=== PATIENT | male | born 1960 | race African-American/Black ===

== ENCOUNTER 2017-05-11 13:49 | Emergency (ER) | payer OTHER ==
--- NOTE | 2017-05-11 14:46 | RAD ---
RIGHT HAND THIRD DIGIT THREE VIEWS: History: Pain. Comparison: None. FINDINGS: No fracture. No cortical irregularity. No periosteal reaction. Joint space is preserved. IMPRESSION: Unremarkable three views right hand. POS: [facility]
== END 2017-05-11 15:15 | disposition home or self-care (01) ==
LOC: ERS 13:49
DX: S60.031A Contusion of right middle finger without damage to nail, initial encounter (principal); F17.210 Nicotine dependence, cigarettes, uncomplicated; W22.8XXA Striking against or struck by other objects, initial encounter; Y92.69 Other specified industrial and construction area as the place of occurrence of the external cause

== ENCOUNTER 2018-11-30 14:14 | Emergency (ER) | payer OTHER, SELFPAY ==
[2018-11-30] MEDS ORDERED: Aspirin Chewable 81 MG TAB ONE (14:31)
[2018-11-30] MEDS ORDERED: Ondansetron PF 4 MG/2 ML Vial ONE (14:31)
[2018-11-30] MEDS ORDERED: Morphine 4 MG/ML VIAL ONE ×2 (14:41→16:04)
[2018-11-30 14:52] LABS: #Eosinphils 0.1 thou/uL (0.0-0.7); #Lymphocytes 2.2 thou/uL (1.20-3.40); #Monocytes 0.8 thou/uL (0.11-0.59); #Neutrophils 7.2 thou/uL (1.40-6.50); %Basophils 0.3 % (0.0-1.0); %Eosinophils 0.8 % (0.0-10.0); %Lymphocytes 21.6 % (21.0-51.0); %Monocytes 7.3 % (0.0-10.0); %Neutrophils 69.9 % (42.0-75.0); Hemoglobin 16.5 g/dL (14.0-18.0); Mean Corpuscular HGB CONC 34.6 g/dL (32.0-36.0); Mean Corpuscular Hemoglobin 32.8 pg (27.0-31.0); Mean Corpuscular Volume 94.9 fL (78.0-98.0); Mean Platelet Volume 7.7 fL (7.4-10.4); Platelet Count 240 thou/uL (130-400); RBC Distribution Width 12.8 % (11.5-14.5); Red Blood Cell (RBC) Count 5.02 mill/uL (4.70-6.10); White Blood Cell (WBC) Count 10.3 thou/uL (4.8-10.8)
[2018-11-30 15:15] LABS: ALT (SGPT) 19 U/L (8-55); AST (SGOT) 29 U/L (5-34); Albumin 4.3 g/dL (3.5-5.0); Alkaline Phosphatase 73 U/L (40-150); Anion Gap 20 mmol/L (10-20); BUN (Urea Nitrogen) 10 mg/dL (8.4-25.7); Bilirubin, Total 0.5 mg/dL (0.2-1.2); Calc. Creatinine Clearance 0 mL/min (70-130); Calcium 9.7 mg/dL (7.8-10.44); Carbon Dioxide 21 mmol/L (22-29); Chloride 104 mmol/L (98-107); Estimated GFR-MDRD 82; Globulin 3.2 g/dL (2.4-3.5); Glucose 72 mg/dL (70-105); Lipase 22 U/L (8-78); Potassium 3.8 mmol/L (3.5-5.1); Protein, Total 7.5 g/dL (6.0-8.3); Sodium 141 mmol/L (136-145)
--- NOTE | 2018-11-30 15:17 | RAD ---
CHEST 1 VIEW: HISTORY: Sharp midsternal chest pain. COMPARISON: 05/30/2009. FINDINGS: Heart size is within normal limits. The lungs are clear. IMPRESSION: No significant acute intrathoracic disease. POS: [facility]
[2018-11-30] MEDS ORDERED: ISOVUE-370 76%-LOCM 1 ML ONE (15:24)
[2018-11-30] MEDS ORDERED: Lidocaine Viscous Sol 2% 15 ml UD Cup ONE (15:36)
[2018-11-30] MEDS ORDERED: Mag-Al 1200 mg/1200 mg/30 ML UDCUP ONE (15:36)
--- NOTE | 2018-11-30 16:05 | CT ---
CT arteriogram chest with IV contrast and 3-D imaging CT arteriogram abdomen with IV contrast and 3-D imaging HISTORY: Chest and back pain. Abdomen pain. FINDINGS: There is good contrast opacification of the pulmonary arteries and aorta with normal branch ing of the great vessels at the aortic arch. No filling defects. Mild calcification within the arterial structures. Visceral arteries are patent. No significant stenosis. Hyperdense stone within the gallbladder lumen. No associated inflammation. Mild degenerative changes lumbar spine. Small hiatal hernia. Bone island right iliac bone. IMPRESSION: Atherosclerosis. No evidence of dissection or other acute vascular abnormality. Cholelithiasis Small hiatal hernia.
[2018-11-30 16:43] LABS: Amphetamine Not Detected (NotDetected); Barbiturates Screen Not Detected (NotDetected); Benzodiazepine Screen Not Detected (NotDetected); Cocaine Metabolite Screen Detected (NotDetected); Medtox Control Line Valid? VALID (VALID); Medtox Reader # READER 1; Methadone Not Detected (NotDetected); Methamphetamine Not Detected (NotDetected); Opiate Screen Detected (NotDetected); Oxycodone Screen Not Detected (NotDetected); Phencyclidine (PCP) Not Detected (NotDetected); THC/Cannabinoid Screen Detected (NotDetected); Tricyclic Screen Not Detected (NotDetected)
--- NOTE | 2018-11-30 17:11 | ULT ---
ULTRASOUND ABDOMEN LIMITED: (RIGHT UPPER QUADRANT) DATE: 11/30/2018 HISTORY: 58-year-old male with right upper quadrant abdominal pain. FINDINGS: Gallbladder:Normal wall thickness. No pericholecystic fluid. There is a 15 mm mobile gallstone. Common duct: 2 mm. Liver:Echogenicity diffusely slightly homogeneously increased. This could be normal or could represen t fatty liver. Pancreas:Mostly obscured by shadowing from bowel gas. Right kidney:No hydronephrosis. IMPRESSION: Cholelithiasis without sonographic evidence of acute cholecystitis.
== END 2018-11-30 18:21 | disposition home or self-care (01) ==
LOC: ERS 14:14
DX: K80.20 Calculus of gallbladder without cholecystitis without obstruction (principal); R07.2 Precordial pain; Z71.6 Tobacco abuse counseling; F17.210 Nicotine dependence, cigarettes, uncomplicated
CPT/HCPCS: 36415; 71045; 71275; 76705; 80053; 80306; 83605; 83690; 84484; 85025; 93005; 96361; 96374; 96375; 96376; 99406; J2270; J2405; Q9966

== ENCOUNTER 2018-12-18 14:58 | Inpatient (IN) | payer SELFPAY ==
[~2018-12-18 14:58] MED LIST: Iopamidol 370 76% 100 ML VIAL ONE
[2018-12-18] MEDS ORDERED: Fentanyl 100 MCG/2 ML VIAL ONE ×2 (15:28→19:31)
[2018-12-18] MEDS ORDERED: Midazolam HCl 2 mg/2 ml Vial ONE (15:28)
[2018-12-18] MEDS ORDERED: Fentanyl 250 MCG/5 ML VIAL ONE (15:49)
[2018-12-18] MEDS ORDERED: Calcium Chloride 1 GM/10 ML Abboject SYRINGE ONE ×2 (15:51→16:48)
[2018-12-18] MEDS ORDERED: Thrombin 5000 UNITS/5 ML VIAL ONE ×2 (15:51→16:48)
[2018-12-18] MEDS ORDERED: Heparin 5,000 UNITS/ML VIAL ONE ×2 (15:51→16:48)
[2018-12-18] MEDS ORDERED: Bupivacaine HCl 0.5%/Epinephrine 1:200,000/PF 30 ml Vial ONE (15:51)
[2018-12-18] MEDS ORDERED: Dexamethasone 4 mg/ml Vial ONE (15:51)
[2018-12-18] MEDS ORDERED: Sodium Bicarb 50 MEQ/50 ML VIAL ONE ×2 (15:52→16:48)
[2018-12-18] MEDS ORDERED: Midazolam HCl 5 mg/5 ml Vial ONE (15:58)
[2018-12-18] MEDS ORDERED: Phenylephrine HCL 10 MG/ML VIAL ONE (15:58)
[2018-12-18] MEDS ORDERED: Heparin 10,000 UNITS/1 ML VIAL ONE (16:03)
[2018-12-18] MEDS ORDERED: Lidocaine 1% (PF) 30 ML VIAL ONE (16:04)
--- NOTE | 2018-12-18 16:16 | CON ---
DATE OF CONSULTATION: CHIEF COMPLAINT: Acute UT. HISTORY OF PRESENT ILLNESS: Mr. Nunes is a 58-year-old gentleman with previous history of tobacco abuse, who recently presented to [facility] with acute chest pain. It began at 9 a.m. He presented with the above. ST-segment changes were present. PAST MEDICAL HISTORY: None. SOCIAL HISTORY: Positive alcohol. Positive tobacco use. He did previously use cocaine, he states he no longer uses cocaine. ALLERGIES: NONE. MEDICATIONS: None. REVIEW OF SYSTEMS: A 10-point review of systems is reviewed as above, otherwise negative. PHYSICAL EXAMINATION: VITAL SIGNS: Blood pressure 153/79, pulse 80, and respirations 20. GENERAL: Patient is a pleasant gentleman, who is in no acute distress. The patient appears their stated age. NEUROLOGIC: The patient is alert and oriented x3 with no focal neurologic deficits. HEENT: Sclerae without icterus. Mouth has moist mucous membranes with normal pallor. NECK: No JVD. Carotid upstroke brisk. No bruits bilaterally. LUNGS: Clear to auscultation with unlabored respirations. BACK: No scoliosis or kyphosis. CARDIAC: Regular rate and rhythm with normal S1 and S2. No S3 or S4 noted. No significant rubs, murmurs, thrills, or gallops noted throughout the precordium. PMI is not displaced. There is no parasternal heave. ABDOMEN: Soft, nontender, nondistended. No peritoneal signs present. No hepatosplenomegaly. No abnormal striae. EXTREMITIES: 2+ femoral and 2+ dorsalis pedis pulses. No cyanosis, clubbing, or edema. SKIN: No gross abnormalities. PERTINENT LABORATORY DATA: Currently pending. EKG shows diffuse ST-segment changes suggesting acute UT, but no reciprocal changes present. IMPRESSION: Acute myocardial infarction. RECOMMENDATIONS: At this point, we will recommend urgent coronary angiography and possible PCI. I discussed procedure in full detail Mr. Nunes. Risks included, but not limited to the following: , stroke, UT, need for emergency surgery, loss of limb, bleeding, and infection, as well as a reaction to the dye causing kidney failure and needing long-term dialysis. I also discussed the risks of PCI to include all of the above including coronary dissection and perforation in addition to acute stent thrombosis and restenosis. All questions about the procedure were answered. Given the above, the patient agreed to proceed with coronary angiography and possible PCI. All questions were answered. Given the above, the patient agreed to proceed with above procedure. Job ID: [id number]
--- NOTE | 2018-12-18 16:38 | CON ---
DATE OF CONSULTATION: HISTORY OF PRESENT ILLNESS: This is a 58-year-old gentleman, who was seen in the emergency room about 2 weeks ago with some chest and abdominal pain. A CTA at that time showed no dissection and his troponin was normal. He had a positive drug screen for opiates, cannabis, and cocaine. He presented to the [place] [facility] today with chest pain and did have a troponin bump with some EKG changes of diffuse ST elevation and was transferred here and cardiac catheterization shows what appears to be thrombus in the proximal LAD, possibly extending back into the left main and Dr. Evans was concerned about possible dissection. Right coronary artery has less than 40% stenosis in its midportion and less than 40% stenosis after the takeoff of the PDA. Left ventricular systolic function is normal. PAST MEDICAL HISTORY: Negative for any medical illnesses. MEDICATIONS: None. ALLERGIES: NONE. SOCIAL HISTORY: The patient admits to drinking a 40-ounce beer or equivalent on a daily basis. He smokes a half pack of cigarettes a day and drug usage, none this month. He, I believe, lives with his mother. PHYSICAL EXAMINATION: GENERAL: He is alert and cooperative gentleman, appearing his stated age. NECK: No carotid bruits. LUNGS: Clear to auscultation. CARDIAC: Regular rate and rhythm. No murmurs. ABDOMEN: Firm and nontender. EXTREMITIES: He has no peripheral edema with palpable pedal pulses and radial pulses bilaterally. He has a sheath in the right femoral artery. PLAN: At this time is coronary artery bypass grafting to the LAD and circumflex system. Informed consent has been obtained. Job ID: [id number]
[2018-12-18] MEDS ORDERED: Papaverine 60 MG/2 ML VIAL ONE (16:48)
[2018-12-18] MEDS ORDERED: Cardioplegic Soln 1,000 ML BAG ONE (16:48)
[2018-12-18] MEDS ORDERED: Mannitol 12.5 GM/50 ML ONE (16:48)
[2018-12-18] MEDS ORDERED: PROPOFOL 200 MG/20 ML VIAL ONE (16:48)
[2018-12-18] MEDS ORDERED: Rocuronium Bromide 10 MG/ML (10ML VIAL) ONE (16:48)
[2018-12-18] MEDS ORDERED: Potassium Chloride 60 MEQ/30 ML VIAL ONE (16:48)
[2018-12-18] MEDS ORDERED: Aminocaproic Acid 5 GM/20 ML VIAL ONE (16:48)
[2018-12-18] MEDS ORDERED: Magnesium 5 GM/10 ML VIAL ONE (16:48)
[2018-12-18] MEDS ORDERED: Protamine Sulfate 250 MG/25 ML VIAL ONE (16:48)
[2018-12-18] MEDS ORDERED: Heparin 30,000 units/30 ml VIAL ONE (16:48)
[2018-12-18] MEDS ORDERED: Vecuronium 10 MG VIAL ONE (16:48)
[2018-12-18] MEDS ORDERED: Lidocaine 2% PF 100 mg/5 ml Syringe ONE (16:48)
[2018-12-18] MEDS ORDERED: Nitroglycerin 50 MG/250 ML BOT ONE (16:48)
[2018-12-18] MEDS ORDERED: Albumin 5% 500 ML ONE (16:51)
[2018-12-18] MEDS ORDERED: Heparin 10,000 UNITS/1 ML VIAL 30,000 UNITS in Sodium Chloride 0.9% 1,000 ML FS SCH (17:45)
[2018-12-18] MEDS ORDERED: DOPamine 400 MG/D5W 250 ML 250 ML IVPB PRN (19:39)
[2018-12-18] MEDS ORDERED: niCARdipine 25 MG in Sodium Chloride 0.9% 250 ML 240 ML IVPB PRN (19:39)
[2018-12-18] MEDS ORDERED: Post-Op Insulin Drip Protocol IVPB ONE (19:39)
[2018-12-18] MEDS ORDERED: Bisacodyl 5 MG TAB PO PRN (19:39)
[2018-12-18] MEDS ORDERED: Acetaminophen 325 MG TAB PO PRN (19:39)
[2018-12-18] MEDS ORDERED: Promethazine HCl 25 MG/ML VIAL IM PRN (19:39)
[2018-12-18] MEDS ORDERED: Nitroglycerin 50 MG/250 ML BOT 250 ML IVPB PRN (19:39)
[2018-12-18] MEDS ORDERED: Guaifenesin DM 100-10/5 ML UDCUP PO PRN (19:39)
[2018-12-18] MEDS ORDERED: Potassium Chloride 20 MEQ/100 ML PREMIX BAG IVPB PRN (19:39)
[2018-12-18] MEDS ORDERED: hydrALAZINE 20 MG/ML VIAL SLOW IVP PRN (19:39)
[2018-12-18] MEDS ORDERED: HYDROcodone/Acetaminophen 5/325 mg Tablet PO PRN (19:39)
[2018-12-18] MEDS ORDERED: Morphine 2 MG/ML SYRINGE SLOW IVP PRN (19:39)
[2018-12-18] MEDS ORDERED: Phenylephrine 10 MG/NS 250 ML 250 ML IVPB PRN (19:39)
[2018-12-18] MEDS ORDERED: Ondansetron PF 4 MG/2 ML Vial IVP PRN (19:39)
[2018-12-18] MEDS ORDERED: Bisacodyl 10 MG SUPP PR PRN (19:39)
[2018-12-18] MEDS ORDERED: Hetastarch 6% 500 ML 500 ML IVPB PRN (19:39)
[2018-12-18] MEDS ORDERED: Fentanyl 100 MCG/2 ML VIAL SLOW IVP PRN (19:39)
[2018-12-18] MEDS ORDERED: Mag-Al 1200 mg/1200 mg/30 ML UDCUP PO PRN (19:39)
[2018-12-18] MEDS ORDERED: HUMULIN R 100 UNITS in Sodium Chloride 0.9% 100 ML IVPB SCH (19:46)
[2018-12-18] MEDS ORDERED: Dextrose 5% in Water 1,000 ML IV PRN (19:46)
[2018-12-18] MEDS ORDERED: Dextrose 50% Abboject 50 ML SYRINGE SLOW IVP PRN (19:46)
--- NOTE | 2018-12-18 19:46 | RAD ---
EXAM: Single view of the chest HISTORY: Status post open heart surgery COMPARISON: 11/30/2018 FINDINGS: Single view of the chest shows a normal sized cardiomediastinal silhouette. The patient is status post sternotomy. An endotracheal tube is seen with its tip at the lower border of the clavicles. A central venous catheter seen with its tip in the superior vena cava. Chest tubes and med iastinal drains are seen without evidence of pneumothorax. There is no evidence of consolidation, mass, or pleural effusion. The bones are unremarkable. IMPRESSION: Appropriate position of lines and tubes status post sternotomy.
[2018-12-18 19:47] LABS: #Lymphocytes 1.1 thou/uL (1.20-3.40); #Monocytes 0.6 thou/uL (0.11-0.59); #Neutrophils 11.5 thou/uL (1.40-6.50); %Basophils 0.2 % (0.0-1.0); %Eosinophils 0.3 % (0.0-10.0); %Lymphocytes 8.2 % (21.0-51.0); %Monocytes 4.5 % (0.0-10.0); %Neutrophils 86.9 % (42.0-75.0); Hemoglobin 12.7 g/dL (14.0-18.0); Mean Corpuscular HGB CONC 33.7 g/dL (32.0-36.0); Mean Corpuscular Hemoglobin 32.1 pg (27.0-31.0); Mean Corpuscular Volume 95.4 fL (78.0-98.0); Mean Platelet Volume 7.3 fL (7.4-10.4); Platelet Count 132 thou/uL (130-400); RBC Distribution Width 12.4 % (11.5-14.5); Red Blood Cell (RBC) Count 3.94 mill/uL (4.70-6.10); White Blood Cell (WBC) Count 13.3 thou/uL (4.8-10.8)
[2018-12-18 19:54] LABS: INR-International Normal Ratio 1.5; PTT 28.3 SEC (22.9-36.1); Prothrombin Time 17.6 SEC (12.0-14.7)
[2018-12-18 19:59] LABS: Actual Bicarbonate (HCO3a) 21.4 mEq/L (22-28); Base Excess (BEa) -3.9 mEq/L (-2.0 to +3.0); CO2 Tension 39.5 mmHg (35.0-45.0); Calcium, Ionized 1.11 mmol/L (1.12-1.30); Hemoglobin (Hb) 12.4 g/dL (14.0-18.0); O2 Tension (PaO2) 325.8 mmHg (80.0-100.0); Potassium - ABG Lab 5.14 mmol/L (3.70-5.30); pH, Arterial 7.35 (7.35-7.45)
[2018-12-18] MEDS ORDERED: Magnesium 2 GM/50 ML 2 GM in Premix Bag 1 BAG IVPB SCH (20:00)
[2018-12-18] MEDS: Lactated Ringer's 1,000 ML IV SCH (20:00)
[2018-12-18 20:01] LABS: Puncture Site ALINE
[2018-12-18 20:02] LABS: ALV-art Gradient 337.825 (0-20)
[2018-12-18 20:06] LABS: Anion Gap 18 mmol/L (10-20); BUN (Urea Nitrogen) 14 mg/dL (8.4-25.7); Calc. Creatinine Clearance 0 mL/min (70-130); Calcium 8.9 mg/dL (7.8-10.44); Carbon Dioxide 23 mmol/L (22-29); Chloride 101 mmol/L (98-107); Estimated GFR-MDRD Greater than 90; Glucose 106 mg/dL (70-105); Potassium 5.8 mmol/L (3.5-5.1); Sodium 136 mmol/L (136-145)
[2018-12-18] MEDS: CEFAZOLIN 2 GM in Premix Bag 1 BAG IVPB SCH (20:15)
[2018-12-18] MEDS: Famotidine/PF 20 mg/2ml Vial SLOW IVP SCH (20:48)
[2018-12-18] MEDS ORDERED: Simvastatin 20 MG TAB PO SCH (21:00)
[2018-12-18] MEDS: Fentanyl 100 MCG/2 ML VIAL SLOW IVP PRN (22:10)
[2018-12-18] MEDS: Insulin Regular 300 UNITS/3 ML VIAL SC PRN (23:46)
[2018-12-19] MEDS: Fentanyl 100 MCG/2 ML VIAL SLOW IVP PRN ×3 (00:16→13:39)
[2018-12-19 01:30] LABS: #Lymphocytes 0.4 thou/uL (1.20-3.40); #Monocytes 0.5 thou/uL (0.11-0.59); #Neutrophils 7.7 thou/uL (1.40-6.50); %Basophils 0.2 % (0.0-1.0); %Monocytes 6.1 % (0.0-10.0); %Neutrophils 88.7 % (42.0-75.0); Mean Corpuscular HGB CONC 33.2 g/dL (32.0-36.0); Mean Corpuscular Hemoglobin 31.9 pg (27.0-31.0); Mean Corpuscular Volume 96.1 fL (78.0-98.0); Mean Platelet Volume 7.4 fL (7.4-10.4); Platelet Count 139 thou/uL (130-400); RBC Distribution Width 12.6 % (11.5-14.5); Red Blood Cell (RBC) Count 4.37 mill/uL (4.70-6.10); White Blood Cell (WBC) Count 8.7 thou/uL (4.8-10.8)
[2018-12-19 01:59] LABS: Anion Gap 21 mmol/L (10-20); BUN (Urea Nitrogen) 13 mg/dL (8.4-25.7); Calc. Creatinine Clearance 76 mL/min (70-130); Calcium 8.5 mg/dL (7.8-10.44); Carbon Dioxide 21 mmol/L (22-29); Chloride 102 mmol/L (98-107); Estimated GFR-MDRD 86; Glucose 152 mg/dL (70-105); Potassium 4.6 mmol/L (3.5-5.1); Sodium 139 mmol/L (136-145)
[2018-12-19] MEDS: CEFAZOLIN 2 GM in Premix Bag 1 BAG IVPB SCH ×2 (03:48→11:29)
[2018-12-19] MEDS: Insulin Regular 300 UNITS/3 ML VIAL SC PRN (03:49)
[2018-12-19] MEDS: HYDROcodone/Acetaminophen 5/325 mg Tablet PO PRN ×5 (03:50→20:33)
[2018-12-19] MEDS: Metoprolol Tartrate 25 MG TAB PO SCH ×2 (07:51→20:31)
[2018-12-19] MEDS: Famotidine/PF 20 mg/2ml Vial SLOW IVP SCH ×2 (07:51→20:31)
--- NOTE | 2018-12-19 08:58 | RAD ---
AP CHEST: Date: 12/19/18 HISTORY: Postop sternotomy. COMPARISON: 12/18/18. FINDINGS: ET tube has been removed. Lung louis appear clear. Central line overlies the right atrium. IMPRESSION: No acute lung process. No significant interval change. POS: [facility]
[2018-12-19] MEDS ORDERED: Aspirin Chewable 81 MG TAB PO SCH (09:00)
[2018-12-19] MEDS: BEER 1 CAN PO SCH ×3 (09:35→19:33)
[2018-12-19] MEDS: Enoxaparin Sodium 30 MG/0.3 ML SYRINGE SC SCH (09:36)
--- NOTE | 2018-12-19 11:18 | OP ---
DATE OF PROCEDURE: 12/18/2018 PREOPERATIVE DIAGNOSIS: Coronary artery disease, non-ST segment elevation myocardial infarction. POSTOPERATIVE DIAGNOSIS: Coronary artery disease, non-ST segment elevation myocardial infarction. PROCEDURE PERFORMED: Coronary artery bypass graft x3, left internal mammary artery to a 1.5 mm left anterior descending, saphenous vein graft to a 1.5 mm diagonal, 1.5 mm OM. All vessels had visible plaque at various areas. DESCRIPTION OF PROCEDURE: After adequate anesthesia had been obtained, the patient was prepped and draped. Dr. Aleman did an open harvest of the left greater saphenous vein in the left thigh while I performed a median sternotomy entering the right pleura distally. Left internal mammary artery was harvested. The patient was heparinized. The mammary divided distally and placed posterior to the thymus gland. Aorta and right atrium were cannulated and cardiopulmonary bypass was begun with good ACT levels. The vessels were inspected for grafting. Aorta was crossclamped and a liter of cold blood cardioplegia given through the aortic root. Distal anastomoses were completed and were hemostatic. Cross-clamp removed, partial occluding clamp placed and two proximal anastomosis performed on the aortic root and marked with rings. Proximal and distal anastomoses were then inspected for hemostasis. Following which, the patient was weaned from cardiopulmonary bypass. Cannulas were removed and an additional 4-0 Prolene suture was placed around the aortic cannulation site. Following this, mediastinal and bilateral pleural drains were placed following which the sternum was reapproximated with #7 interrupted wire using vancomycin paste on the sternal edges, platelet-rich blood and platelet-poor plasma. Subcutaneous tissue and skin were closed in layers. The patient is to be taken to the ICU in guarded condition. Job ID: [id number]
[2018-12-19] MEDS: Lactated Ringer's 1,000 ML IV SCH (11:33)
[2018-12-19] MEDS: Polyethylene Glycol 3350 17 GM Packet PO SCH (11:33)
--- NOTE | 2018-12-19 16:50 | CON ---
DATE OF CONSULTATION: 12/19/2018 HISTORY OF PRESENT ILLNESS: Demetrio Nunes is a very pleasant gentleman. He is 58-year-old. Apparently, he has been having chest pain at rest for quite some time. He was transferred here from [place]. He subsequently has undergone coronary bypass grafting. PAST MEDICAL HISTORY: Unremarkable. SOCIAL HISTORY: He is a smoker and a drinker. He used cocaine in the past. FAMILY HISTORY: Not obtained. ALLERGIES: HE HAS NO DRUG ALLERGIES. MEDICATIONS: Prior to admission, he was on no medications. REVIEW OF SYSTEMS: Prior to admission, his 10-point review of systems other than chest pain was negative. He said he would have pain at rest and it would catch him without guarding, it was horrible. He finally went to the emergency room. Review of systems otherwise negative. PHYSICAL EXAMINATION: GENERAL: Blood pressure is 117/77, heart rate is 94, respiratory rate is 21, oximetry is 99. He is in sinus rhythm. HEENT: His pupils are equal. Sclerae are anicteric. Extraocular movements are full. Throat is clear. NECK: Supple. No lymphadenopathy. LUNGS: Clear. HEART: Regular rhythm. S1 and S2 are normal. ABDOMEN: Soft and nontender. EXTREMITIES: They are warm. NEURO: Grossly nonfocal. LABORATORY DATA: White count 8.7, hemoglobin 14.0, platelets 139. Sodium 139, potassium 4.6, chloride 102, bicarb 21, BUN 13, creatinine 1.07, glucose 152. PH yesterday after surgery, which was 7.35, CO2 of 39, pO2 of 325. IMPRESSION: Status post coronary artery bypass grafting with a left internal mammary artery to his left anterior descending, a saphenous vein graft to his diagonal and the saphenous vein graft to his obtuse marginal. He is doing reasonably well other than complaining of the usual aches and pains after surgery. We will be happy to follow. TIME SPENT: A 70-minute consult, with greater than 50% of the time spent on the unit coordinating care. Job ID: [id number] MTDD
[2018-12-19] MEDS: Atorvastatin Calcium 40 MG TAB PO SCH (20:31)
[2018-12-20] MEDS: Lactated Ringer's 1,000 ML IV SCH (04:07)
[2018-12-20 04:22] LABS: Anion Gap 10 mmol/L (10-20); BUN (Urea Nitrogen) 8 mg/dL (8.4-25.7); Calc. Creatinine Clearance 98 mL/min (70-130); Calcium 8.3 mg/dL (7.8-10.44); Carbon Dioxide 30 mmol/L (22-29); Chloride 96 mmol/L (98-107); Estimated GFR-MDRD Greater than 90; Glucose 109 mg/dL (70-105); Potassium 4.1 mmol/L (3.5-5.1); Sodium 132 mmol/L (136-145)
[2018-12-20 05:23] LABS: #Eosinphils 0.2 thou/uL (0.0-0.7); #Lymphocytes 1.2 thou/uL (1.20-3.40); #Monocytes 0.8 thou/uL (0.11-0.59); #Neutrophils 4.5 thou/uL (1.40-6.50); %Basophils 0.2 % (0.0-1.0); %Eosinophils 2.5 % (0.0-10.0); %Lymphocytes 17.7 % (21.0-51.0); %Monocytes 11.7 % (0.0-10.0); Hemoglobin 12.6 g/dL (14.0-18.0); Mean Corpuscular HGB CONC 33.5 g/dL (32.0-36.0); Mean Corpuscular Hemoglobin 32.2 pg (27.0-31.0); Mean Corpuscular Volume 96.2 fL (78.0-98.0); Mean Platelet Volume 7.9 fL (7.4-10.4); Platelet Count 115 thou/uL (130-400); Platelet Morphology Comment Appears Decreased; RBC Distribution Width 12.3 % (11.5-14.5); Red Blood Cell (RBC) Count 3.93 mill/uL (4.70-6.10); White Blood Cell (WBC) Count 6.6 thou/uL (4.8-10.8)
[2018-12-20] MEDS: HYDROcodone/Acetaminophen 5/325 mg Tablet PO PRN ×3 (06:07→18:20)
[2018-12-20 06:10] VITALS: BMI 22.7
[2018-12-20] MEDS ORDERED: Mag-Al 1200 mg/1200 mg/30 ML UDCUP PO PRN (07:19)
[2018-12-20] MEDS ORDERED: Mineral Oil ENEMA PR PRN (07:19)
[2018-12-20] MEDS ORDERED: Guaifenesin DM 100-10/5 ML UDCUP PO PRN (07:19)
[2018-12-20] MEDS ORDERED: Bisacodyl 5 MG TAB PO PRN (07:19)
[2018-12-20] MEDS ORDERED: Nitroglycerin 0.4 MG TAB (25 Tab Bottle) SL PRN (07:19)
[2018-12-20] MEDS ORDERED: Acetaminophen 325 MG TAB PO PRN (07:19)
[2018-12-20] MEDS ORDERED: Bisacodyl 10 MG SUPP PR PRN (07:19)
[2018-12-20] MEDS: Polyethylene Glycol 3350 17 GM Packet PO SCH (08:09)
[2018-12-20] MEDS: Furosemide 40 MG TAB PO SCH (08:09)
[2018-12-20] MEDS: Potassium Chloride 10 MEQ TAB PO SCH (08:09)
[2018-12-20] MEDS: Metoprolol Tartrate 25 MG TAB PO SCH ×2 (08:09→21:30)
[2018-12-20] MEDS: Famotidine 20 MG TAB PO SCH ×2 (08:09→21:30)
[2018-12-20] MEDS: Aspirin 325 mg Enteric Coated Tablet PO SCH (08:09)
[2018-12-20] MEDS: Enoxaparin Sodium 30 MG/0.3 ML SYRINGE SC SCH (08:10)
--- NOTE | 2018-12-20 08:34 | RAD ---
CHEST 1 VIEW: Date: 12/20/18 INDICATION: History of open heart surgery. COMPARISON: Prior exam dated 12/19/18. FINDINGS: The mediastinal drains, bilateral thoracostomy tubes, and right IJ central venous catheter are unchan ged. Midline sternotomy wires are stable. Mild cardiomegaly persists. No pleural effusion or pneumoth orax is evident. IMPRESSION: Stable examination. POS: [facility]
--- NOTE | 2018-12-20 13:18 | PDOC.CPN ---
- Subjective Date: 12/20/18 Time: 13:17 - Objective Allergies/Adverse Reactions: Allergies Allergy/AdvReac Type Severity Reaction Status Date / Time No Known Allergies Allergy Verified 12/18/18 20:26 Visit Medications: Current Medications Acetaminophen (Tylenol) 650 mg PO Q6H PRN PRN Reason: Headache/Fever or Pain Hydrocodone Bitart/Acetaminophen ([place] 5/325) 1 tab PO Q4H PRN PRN Reason: Moderate Pain (4-6) Hydrocodone Bitart/Acetaminophen ([place] 5/325) 2 tab PO Q4H PRN PRN Reason: Severe Pain (7-10) Last Admin: 12/20/18 12:06 Dose: 2 tab Al Hydroxide/Mg Hydroxide (Maalox) 30 ml PO Q4H PRN PRN Reason: Indigestion Aspirin (Ecotrin) 325 mg PO DAILY [facility] Last Admin: 12/20/18 08:09 Dose: 325 mg Atorvastatin Calcium (Lipitor) 40 mg PO HS [facility] Last Admin: 12/19/18 20:31 Dose: 40 mg Bisacodyl (Dulcolax) 10 mg PO Q12H PRN PRN Reason: Constipation Bisacodyl (Dulcolax) 10 mg [place] Q12H PRN PRN Reason: Constipation Enoxaparin Sodium (Lovenox) 30 mg SC 0900 [facility] Last Admin: 12/20/18 08:10 Dose: 30 mg Famotidine (Pepcid) 20 mg PO BID [facility] Last Admin: 12/20/18 08:09 Dose: 20 mg Fentanyl (Sublimaze) 25 mcg SLOW IVP Q2H PRN PRN Reason: Moderate Pain (4-6) Stop: 12/20/18 19:16 Fentanyl (Sublimaze) 50 mcg SLOW IVP Q2H PRN PRN Reason: Severe Pain (7-10) Stop: 12/20/18 19:16 Last Admin: 12/19/18 13:39 Dose: 50 mcg Furosemide (Lasix) 40 mg PO DAILY [facility] Last Admin: 12/20/18 08:09 Dose: 40 mg Guaifenesin/Dextromethorphan (Robitussin Dm) 15 ml PO Q4H PRN PRN Reason: Cough Metoprolol Tartrate (Lopressor) 25 mg PO BID [facility] Last Admin: 12/20/18 08:09 Dose: 25 mg Mineral Oil (Fleet Mineral Oil) 133 ml [place] DAILYPRN PRN PRN Reason: Constipation Nitroglycerin (Nitrostat) 0.4 mg SL Q5MIN PRN PRN Reason: Chest Pain Polyethylene Glycol (Miralax) 17 gm PO DAILY [facility] Last Admin: 12/20/18 08:09 Dose: 17 gm Potassium Chloride (Klor-Con 10) 10 meq PO QAM-WM [facility] Last Admin: 12/20/18 08:09 Dose: 10 meq Vital Signs & Weight: Vital Signs Temp Pulse BP Pulse Ox Pulse Ox 12/20/18 11:36 91 103/73 100 12/20/18 11:00 98.4 F 12/20/18 09:00 89 103/65 93 L 12/20/18 08:00 98.7 F 98 12/20/18 04:00 98.3 F Weight 158 lb 11.725 oz - Physical Exam General: alert & oriented x3 Neck: supple neck, carotid upstroke Cardiac: regular rate and rhythm Lungs: clear to auscultation Neuro: grossly intact Skin: clear Musculoskeletal: normal range of motion - Labs Result Diagrams: 12/20/18 03:59 12/20/18 03:59 - Telemetry Sinus rhythms and dysrhythmias: sinus rhythm - Problem (1) Acute myocardial infarction Code(s): I21.9 - ACUTE MYOCARDIAL INFARCTION, UNSPECIFIED Assessment and Plan: Thrombus to LM vs dissection s/p CABG. LIkely related to cocaine use (2) Cocaine abuse Code(s): F14.10 - COCAINE ABUSE, UNCOMPLICATED Assessment and Plan: see above (3) S/P CABG (coronary artery bypass graft) Code(s): Z95.1 - PRESENCE OF AORTOCORONARY BYPASS GRAFT (4) CAD (coronary artery disease) Code(s): I25.10 - ATHSCL HEART DISEASE OF [place] CORONARY ARTERY W/O ANG PCTRS Assessment and Plan: Statin, BB, IS and ambulation
--- NOTE | 2018-12-20 15:01 | PRG ---
DATE OF SERVICE: 12/20/2018 SUBJECTIVE: Demetrio Nunes is OBJECTIVE: VITAL SIGNS: Heart rate , blood pressure 118/81, respiratory rate 22. GENERAL: He is up and walking in the romero. Doing reasonably well with physical therapy. LUNGS: Clear. HEART: Regular rhythm. ABDOMEN: Soft. EXTREMITIES: . LABORATORY DATA: White count 6.6, hemoglobin 12.6, platelets 115,000. Sodium 132, potassium 4.1, chloride 96, bicarb 30, BUN 8, creatinine 0.82. IMPRESSION: Status post coronary artery bypass grafting, stable and transfer out when a bed becomes available. Job ID: [id number]
--- NOTE | 2018-12-20 16:43 | EKG ---
Test Reason : POST CABG Blood Pressure : / mmHG Vent. Rate : 123 BPM Atrial Rate : 084 BPM P-R Int : 186 ms QRS Dur : 082 ms QT Int : 416 ms P-R-T Axes : 073 027 052 degrees QTc Int : 595 ms Sinus rhythm with frequent Premature ventricular complexes Low voltage QRS Septal infarct (cited on or before 30-NOV-2018) Abnormal ECG When compared with ECG of 30-NOV-2018 14:24, Premature ventricular complexes are now Present Cannot exclude possibility of pericarditis Confirmed by DR. Arlyn LIM ([id number]) on 12/20/2018 4:43:17 PM Referred By: Viviana PEARCE Confirmed By:DR. Arlyn LIM
[2018-12-20] MEDS: Atorvastatin Calcium 40 MG TAB PO SCH (21:30)
[2018-12-21] MEDS: HYDROcodone/Acetaminophen 5/325 mg Tablet PO PRN ×2 (06:37→18:06)
[2018-12-21] MEDS: Aspirin 325 mg Enteric Coated Tablet PO SCH (08:39)
[2018-12-21] MEDS: Polyethylene Glycol 3350 17 GM Packet PO SCH (08:39)
[2018-12-21] MEDS: Famotidine 20 MG TAB PO SCH ×2 (08:39→20:21)
[2018-12-21] MEDS: Metoprolol Tartrate 25 MG TAB PO SCH ×2 (08:39→20:21)
[2018-12-21] MEDS: Furosemide 40 MG TAB PO SCH (08:39)
[2018-12-21] MEDS: Potassium Chloride 10 MEQ TAB PO SCH (08:39)
[2018-12-21] MEDS: Enoxaparin Sodium 30 MG/0.3 ML SYRINGE SC SCH (08:40)
--- NOTE | 2018-12-21 12:53 | PDOC.CPN ---
- Subjective Date: 12/21/18 Time: 08:00 Interval history: No compalints Transferred to tele - Objective Allergies/Adverse Reactions: Allergies Allergy/AdvReac Type Severity Reaction Status Date / Time No Known Allergies Allergy Verified 12/18/18 20:26 Visit Medications: Current Medications Acetaminophen (Tylenol) 650 mg PO Q6H PRN PRN Reason: Headache/Fever or Pain Hydrocodone Bitart/Acetaminophen ([place] 5/325) 1 tab PO Q4H PRN PRN Reason: Moderate Pain (4-6) Hydrocodone Bitart/Acetaminophen ([place] 5/325) 2 tab PO Q4H PRN PRN Reason: Severe Pain (7-10) Last Admin: 12/21/18 06:37 Dose: 2 tab Al Hydroxide/Mg Hydroxide (Maalox) 30 ml PO Q4H PRN PRN Reason: Indigestion Aspirin (Ecotrin) 325 mg PO DAILY [facility] Last Admin: 12/21/18 08:39 Dose: 325 mg Atorvastatin Calcium (Lipitor) 40 mg PO HS [facility] Last Admin: 12/20/18 21:30 Dose: 40 mg Bisacodyl (Dulcolax) 10 mg PO Q12H PRN PRN Reason: Constipation Bisacodyl (Dulcolax) 10 mg [place] Q12H PRN PRN Reason: Constipation Enoxaparin Sodium (Lovenox) 30 mg SC 0900 [facility] Last Admin: 12/21/18 08:40 Dose: 30 mg Famotidine (Pepcid) 20 mg PO BID [facility] Last Admin: 12/21/18 08:39 Dose: 20 mg Furosemide (Lasix) 40 mg PO DAILY [facility] Last Admin: 12/21/18 08:39 Dose: 40 mg Guaifenesin/Dextromethorphan (Robitussin Dm) 15 ml PO Q4H PRN PRN Reason: Cough Metoprolol Tartrate (Lopressor) 25 mg PO BID [facility] Last Admin: 12/21/18 08:39 Dose: 25 mg Mineral Oil (Fleet Mineral Oil) 133 ml [place] DAILYPRN PRN PRN Reason: Constipation Nitroglycerin (Nitrostat) 0.4 mg SL Q5MIN PRN PRN Reason: Chest Pain Polyethylene Glycol (Miralax) 17 gm PO DAILY [facility] Last Admin: 12/21/18 08:39 Dose: 17 gm Potassium Chloride (Klor-Con 10) 10 meq PO QAM-[facility] Last Admin: 12/21/18 08:39 Dose: 10 meq Vital Signs & Weight: Vital Signs Temp Pulse Pulse Resp BP BP Pulse Ox 12/21/18 11:05 98.1 F 84 12 118/78 96 12/21/18 08:49 97 122/73 12/21/18 07:25 98.9 F 98 16 115/74 94 L 12/21/18 03:56 98.8 F 99 16 120/76 95 Pulse Ox 12/21/18 11:05 12/21/18 08:49 96 12/21/18 07:25 12/21/18 03:56 Weight 157 lb 4.8 oz - Physical Exam General: alert & oriented x3 Neck: supple neck Cardiac: no murmur Lungs: normal exam Neuro: grossly intact Abdomen: active bowel sounds, soft, non-tender - Labs Result Diagrams: 12/20/18 03:59 12/20/18 03:59 - Telemetry Sinus rhythms and dysrhythmias: sinus rhythm - Problem (1) Acute myocardial infarction Code(s): I21.9 - ACUTE MYOCARDIAL INFARCTION, UNSPECIFIED (2) Cocaine abuse Code(s): F14.10 - COCAINE ABUSE, UNCOMPLICATED Assessment and Plan: Sttes has not used for months but had a (+) screen a few weeks ago. Counseled and warned on the continued use of cocaine (3) S/P CABG (coronary artery bypass graft) Code(s): Z95.1 - PRESENCE OF AORTOCORONARY BYPASS GRAFT Assessment and Plan: IS and PT BB and ASA and statin (4) CAD (coronary artery disease) Code(s): I25.10 - ATHSCL HEART DISEASE OF [place] CORONARY ARTERY W/O ANG PCTRS
--- NOTE | 2018-12-21 16:27 | PRG ---
DATE OF SERVICE: 12/21/2018 SUBJECTIVE: Demetrio Nunes observed ambulating in the romero today. He is in no distress. He looks much stronger than yesterday. OBJECTIVE: VITAL SIGNS: He is afebrile, heart rate is 84, respiratory rate is 12, oximetry is 96 on room air, blood pressure 118/78. LUNGS: Clear. HEART: Regular rhythm. ABDOMEN: Soft. IMPRESSION: Status post coronary artery bypass grafting, clinically doing well with no respiratory distress or hypoxemia. We will sign off. Job ID: [id number]
[2018-12-21] MEDS: Atorvastatin Calcium 40 MG TAB PO SCH (20:21)
[2018-12-22] MEDS: HYDROcodone/Acetaminophen 5/325 mg Tablet PO PRN (03:57)
--- NOTE | 2018-12-22 06:56 | PDOC.CPN ---
- Subjective Date: 12/22/18 Time: 07:48 - Objective Allergies/Adverse Reactions: Allergies Allergy/AdvReac Type Severity Reaction Status Date / Time No Known Allergies Allergy Verified 12/18/18 20:26 Visit Medications: Current Medications Acetaminophen (Tylenol) 650 mg PO Q6H PRN PRN Reason: Headache/Fever or Pain Hydrocodone Bitart/Acetaminophen ([place] 5/325) 1 tab PO Q4H PRN PRN Reason: Moderate Pain (4-6) Hydrocodone Bitart/Acetaminophen ([place] 5/325) 2 tab PO Q4H PRN PRN Reason: Severe Pain (7-10) Last Admin: 12/22/18 03:57 Dose: 2 tab Al Hydroxide/Mg Hydroxide (Maalox) 30 ml PO Q4H PRN PRN Reason: Indigestion Aspirin (Ecotrin) 325 mg PO DAILY [facility] Last Admin: 12/21/18 08:39 Dose: 325 mg Atorvastatin Calcium (Lipitor) 40 mg PO HS [facility] Last Admin: 12/21/18 20:21 Dose: 40 mg Bisacodyl (Dulcolax) 10 mg PO Q12H PRN PRN Reason: Constipation Bisacodyl (Dulcolax) 10 mg [place] Q12H PRN PRN Reason: Constipation Enoxaparin Sodium (Lovenox) 30 mg SC 0900 [facility] Last Admin: 12/21/18 08:40 Dose: 30 mg Famotidine (Pepcid) 20 mg PO BID [facility] Last Admin: 12/21/18 20:21 Dose: 20 mg Furosemide (Lasix) 40 mg PO DAILY [facility] Last Admin: 12/21/18 08:39 Dose: 40 mg Guaifenesin/Dextromethorphan (Robitussin Dm) 15 ml PO Q4H PRN PRN Reason: Cough Metoprolol Tartrate (Lopressor) 25 mg PO BID [facility] Last Admin: 12/21/18 20:21 Dose: 25 mg Mineral Oil (Fleet Mineral Oil) 133 ml [place] DAILYPRN PRN PRN Reason: Constipation Nitroglycerin (Nitrostat) 0.4 mg SL Q5MIN PRN PRN Reason: Chest Pain Polyethylene Glycol (Miralax) 17 gm PO DAILY [facility] Last Admin: 12/21/18 08:39 Dose: 17 gm Potassium Chloride (Klor-Con 10) 10 meq PO QAM-[facility] Last Admin: 12/21/18 08:39 Dose: 10 meq Vital Signs & Weight: Vital Signs Temp Pulse Resp BP Pulse Ox 12/22/18 03:50 98.8 F 100 16 113/70 97 12/21/18 19:15 99.2 F 98 16 104/65 98 Weight 154 lb - Physical Exam HEENT: mucus membranes moist Neck: supple neck Cardiac: regular rate and rhythm Lungs: clear to auscultation Neuro: grossly intact Abdomen: unremarkable Musculoskeletal: no pain - Labs Result Diagrams: 12/20/18 03:59 12/20/18 03:59 - Problem (1) Acute myocardial infarction Code(s): I21.9 - ACUTE MYOCARDIAL INFARCTION, UNSPECIFIED Assessment and Plan: resolved (2) Cocaine abuse Code(s): F14.10 - COCAINE ABUSE, UNCOMPLICATED Assessment and Plan: states he will quit (3) S/P CABG (coronary artery bypass graft) Code(s): Z95.1 - PRESENCE OF AORTOCORONARY BYPASS GRAFT Assessment and Plan: on ASA, BB, statin PTY, IS (4) CAD (coronary artery disease) Code(s): I25.10 - ATHSCL HEART DISEASE OF [place] CORONARY ARTERY W/O ANG PCTRS
[2018-12-22 07:43] VITALS: TEMP 97.9
[2018-12-22] MEDS: Potassium Chloride 10 MEQ TAB PO SCH (09:20)
[2018-12-22] MEDS: Enoxaparin Sodium 30 MG/0.3 ML SYRINGE SC SCH (09:20)
[2018-12-22] MEDS: Furosemide 40 MG TAB PO SCH (09:21)
[2018-12-22] MEDS: Metoprolol Tartrate 25 MG TAB PO SCH (09:21)
[2018-12-22] MEDS: Polyethylene Glycol 3350 17 GM Packet PO SCH (09:21)
[2018-12-22] MEDS: Aspirin 325 mg Enteric Coated Tablet PO SCH (09:21)
[2018-12-22] MEDS: Famotidine 20 MG TAB PO SCH (09:21)
[2018-12-22 11:07] VITALS: BP 109/71
--- NOTE | 2018-12-22 11:42 | DIS ---
DATE OF ADMISSION: 12/18/2018 DATE OF DISCHARGE: 12/22/2018 HOSPITAL SUMMARY: The patient was admitted through the [facility], transferred here on Tuesday, where he underwent emergent cardiac catheterization and taken to the operating room, where he underwent coronary artery bypass grafting. His culprit lesion was thrombus in the orifice of the LAD as well as a distal left main. He underwent 3-vessel grafting to the LAD, diagonal, and obtuse marginal. His postoperative course has been uneventful to this point. He will be discharged home on metoprolol 25 b.i.d., atorvastatin 40 a day, and aspirin 1 a day. He is also receiving a prescription for tramadol. Discharge and followup instructions were given. Job ID: [id number]
--- NOTE | 2018-12-25 05:49 | PQF ---
Demetrio Nunes JAMES M MD [id number] CLINICAL DOCUMENTATION CLARIFICATION FORM: POST DISCHARGE Addendum to original discharge summary date: ____ Late entry note date: __ DATE: 12-25-2018 ATTN: Chadd Brito Please exercise your independent, professional judgment in responding to the clarification form. Clinical indicators are provided on the bottom of this form for your review Based on the below indicators can you please specify the etiology of patient CO. Please check appropriate box(s): NSTEMI: due to : [y ] Cocaine Use [ y ] Thrombus of coronary artery [ u ] Dissection of coronary artery [ ] Other diagnosis please specify: [ ] Unable to determine CLINICAL INDICATORS: -Consult 12/18 "presented in the ER with acute chest pain" -Consult 12/18 "ST segment changes were present" -Consult 12/18 "He did previously use cocaine" -Consult 12/18 "He had a positive drug screen for opiates, cannabis and cocaine " -PN 12/20 "Acute CO likely related to cocaine use" -PN 12/20 "thrombus to LM vs dissection s/p CABG" -PN 12/21 "states has not used for months but has a positive screen a few weeks ago" RISKS: -Consult 12/18 - Positive alcohol use -Consult 12/18 - Smoker -OP Note 12/18 - CAD -OP Note 12/18 - NSTEMI -PN 12/20 - Cocaine abuse TREATMENTS: -Consult 12/18 EKG -Buck Presser 12/18 [facility] MTDD
== END 2018-12-22 13:02 | disposition home or self-care (01) | DRG 233 ==
LOC: LAB 14:58 → CCU 16:15 → 2NO 12-20 16:02
PROVIDERS: ADMIT Thoracic Surgery (Cardiothoracic Vascular Surgery); ATTEND Thoracic Surgery (Cardiothoracic Vascular Surgery)
PROC: 02100Z9 Bypass Coronary Artery, One Artery from Left Internal Mammary, Open Approach (ICD-10-PCS; principal; 2018-12-18)
PROC: 4A023N7 Measurement of Cardiac Sampling and Pressure, Left Heart, Percutaneous Approach (ICD-10-PCS; 2018-12-18)
PROC: 021109W Bypass Coronary Artery, Two Arteries from Aorta with Autologous Venous Tissue, Open Approach (ICD-10-PCS; 2018-12-18)
PROC: 06BQ0ZZ Excision of Left Saphenous Vein, Open Approach (ICD-10-PCS; 2018-12-18)
PROC: 5A1221Z Performance of Cardiac Output, Continuous (ICD-10-PCS; 2018-12-18)
PROC: B2111ZZ Fluoroscopy of Multiple Coronary Arteries using Low Osmolar Contrast (ICD-10-PCS; 2018-12-18)
PROC: 4A033BC Measurement of Arterial Pressure, Coronary, Percutaneous Approach (ICD-10-PCS; 2018-12-18)
DX: I21.4 Non-ST elevation (NSTEMI) myocardial infarction (principal); I25.42 Coronary artery dissection; F17.210 Nicotine dependence, cigarettes, uncomplicated; F14.10 Cocaine abuse, uncomplicated; I25.10 Atherosclerotic heart disease of native coronary artery without angina pectoris; T40.5X1A Poisoning by cocaine, accidental (unintentional), initial encounter; I21.A1 Myocardial infarction type 2
CPT/HCPCS: 36415; 36416; 36430; 71045; 76942; 80048; 82805; 84443; 85025; 85610; 85730; 86850; 86900; 86901; 93005; 93010; 93458; 93798; 94002; 94150; 99152; 99153; C1769; J0360; J0670; J0690; J1100; J1644; J1650; J1815; J2001; J2150; J2250; J2370; J2440; J2704; J2720; J3010; J3370; J3475; J3480; J7050; P9045; Q9967; S0017; S0028

== ENCOUNTER 2018-12-29 09:13 | Inpatient (IN) | payer SELFPAY ==
[2018-12-29 10:23] LABS: CKMB 4.2 ng/mL (0-6.6)
[2018-12-29] MEDS ORDERED: Enoxaparin Sodium 80 MG/0.8 ML SYRINGE ONE (11:31)
[2018-12-29] MEDS ORDERED: Nitroglycerin 0.4 MG TAB (25 Tab Bottle) PO PRN (12:50)
[2018-12-29] MEDS ORDERED: Ondansetron ODT 4 MG TAB PO PRN (12:50)
[2018-12-29] MEDS ORDERED: Ondansetron PF 4 MG/2 ML Vial IVP PRN (12:50)
[2018-12-29 13:04] VITALS: BMI 19.9
[2018-12-29 13:33] LABS: Troponin I 4.306 ng/mL (< 0.028)
--- NOTE | 2018-12-29 14:19 | HP ---
PRIMARY CARE PHYSICIAN: Ms. Kumari at the [facility] in [place]. CHIEF COMPLAINT: Severe pain in both arms. HISTORY OF PRESENT ILLNESS: Mr. Nunes is a pleasant 58-year-old gentleman, who has a history of coronary artery disease. He was recently discharged from our facility about a week ago after he suffered a [id number]-[id number]-moronvs elevated TX. He was admitted by the Cardiology team and underwent a 3-vessel bypass surgery. At that time, his urine drug screen was positive for cocaine as well as cannabinoids. He was treated and then discharged home. He had an uneventful postoperative course. He says that he went home and was feeling "like he had surgery, but otherwise had not had any complaints, but says that he woke up at about 05:00 a.m. this morning with both arms aching, this was unprovoked." He says it was very similar to the symptoms he had a little over a week ago, which prompted his bypass surgery. He says the pain was rated at about 100/10. He says the pain was so bad, he really could not remember if he was having any difficulty with his breathing. He did have some nausea as well as some diaphoresis. He said the pain would come and go and as a result, he called an ambulance and was taken to the hospital in [place]. There, he was evaluated and it was found that he had a slightly elevated troponin and he is being admitted for further evaluation. The patient denies any PND. No orthopnea. No lower extremity edema. No palpitations. REVIEW OF SYSTEMS: CONSTITUTIONAL: There has been no fevers or chills. No night sweats. No weight loss. HEENT: No headaches. No dizziness. No visual changes. No sore throat, rhinorrhea, neck pain, or adenopathy. PULMONARY: No hemoptysis. No cough. No wheezing. CARDIOVASCULAR: As per history of present illness. GASTROINTESTINAL: He denies any abdominal pain except for some mild epigastric pain he attributes to surgery. No change in bowels. GENITOURINARY: No urinary frequency or hematuria. No hesitancy. MUSCULOSKELETAL: No muscle pains, weakness, or joint pains. NEUROLOGIC: No focal weakness or numbness. No seizures. PSYCHIATRIC: No symptoms of anxiety or depression. SKIN AND INTEGUMENT: No skin changes. No rash. PAST MEDICAL HISTORY: Significant for coronary artery disease. PAST SURGICAL HISTORY: He has had a 3-vessel bypass with MCINTYRE to the LAD. ALLERGIES: NO KNOWN DRUG ALLERGIES. SOCIAL HISTORY: He is still legally , but he says he has not seen his in over 40 years. He smokes 1 to 2 cigarettes a day and also prior to that smoked about a pack a day. He worked as a trash truck driver. He also drinks a couple of beers a day. He says he used to drink heavily, but he stopped doing that. He denies any use of cocaine or marijuana, but says "he has handled it, meaning touched it, but did not use it despite UDS being positive on the last admission." FAMILY HISTORY: His mother had a cerebrovascular accident and , and his father at age 62 from a cerebrovascular accident. Mother had a stroke as well. MEDICATIONS: Include; 1. Metoprolol 25 mg twice daily. 2. Atorvastatin 40 mg daily. 3. Aspirin daily. PHYSICAL EXAMINATION: GENERAL: He is alert and oriented. He appears to be in no acute distress. He is well developed and well nourished. VITAL SIGNS: Blood pressure was 142/90, heart rate 82, respiratory rate of 16, temperature is 98.1. HEENT: Pupils are equal, round, and reactive to light. Extraocular muscles are intact. Sclerae are anicteric. Throat, there is no erythema. No exudates. NECK: No adenopathy. No bruits. LUNGS: Clear to auscultation. There is no wheezing, no rales, no rhonchi. CARDIOVASCULAR: He had a normal S1 and S2. There is no S3 or S4. No murmurs, clicks, or rubs. ABDOMEN: Soft, nontender, and nondistended. Positive for bowel sounds. There is no rebound, no guarding, no organomegaly. He does have a midline sternotomy scar. EXTREMITIES: No clubbing or cyanosis. No edema. No calf tenderness. No joint effusions. NEUROLOGIC: His muscle strength is 5/5 in both his upper and lower extremities. SKIN AND INTEGUMENT: No skin changes. No rash. LABORATORY AND IMAGING DATA: The labs from the outside hospital were reviewed. His troponin was a bit elevated at 0.223. EKG was sinus rhythm with some nonspecific ST wave changes. ASSESSMENT AND PLAN: This is a pleasant 58-year-old gentleman, who presents with similar symptoms he had on his previous admission, in which he had suffered an N-STEMI. The etiology of which is unknown. I suspect it could possibly be related to substance abuse; however, the patient denies any use. He will be placed in observation. We will continue to trend his cardiac enzymes. Get an echocardiogram. Place him back on his medical treatment. He was given a dose of Lovenox and we will continue this b.i.d. and consult Cardiology for further recommendations. Job ID: [id number]
[2018-12-29] MEDS ORDERED: Lidocaine 1% (PF) 30 ML VIAL ONE (14:36)
[2018-12-29] MEDS ORDERED: Heparin 0 ML ONE (14:36)
[2018-12-29] MEDS ORDERED: Heparin 10,000 UNITS/1 ML VIAL ONE (14:37)
[2018-12-29] MEDS ORDERED: Nitroglycerin 100MG/250ML BOT 0 ML ONE (14:37)
[2018-12-29 16:06] LABS: Troponin I 8.708 ng/mL (< 0.028)
--- NOTE | 2018-12-29 17:35 | CON ---
DATE OF CONSULTATION: 12/29/2018 PRIMARY FURNITURE ASSEMBLER AND INSTALLER: Dr. Vinicius Evans. REASON FOR CONSULTATION: Non-STEMI. HISTORY OF PRESENT ILLNESS: Mr. Nunes is a pleasant 58-year-old gentleman, who comes to the hospital for chest pain. He woke up today at 5:00 a.m. with severe bilateral arm pains. He said this is the exact same way he felt when he needed bypass surgery just a week ago. He presented to the hospital 2 or 3 weeks ago for chest pain. He had a positive urine drug screen for cocaine. At that time, he was taken to the catheterization lab and was found to have a thrombus in the ostium of the LAD and left main, so he underwent CABG x3 with a MCINTYRE to the LAD, a vein graft to an OM, and a vein graft to diagonal. RCA had moderate disease. He was discharged about a week ago. He was woken up this morning at 5:00 a.m. with the above complaints. On my evaluation, Mr. Nunes is pain-free, walking around the halls, feeling better. His troponin has gone up. PAST MEDICAL HISTORY: 1. Coronary artery disease, status post CABG as above. 2. Substance abuse. PAST SURGICAL HISTORY: Three-vessel bypass just a few days ago with a MCINTYRE to the LAD, a vein graft to 1.5 mm diagonal, and a vein graft to a 1.5 mm OM. There was a visible plaque at all the areas of the arteries per Dr. Hearn's report, who performed the surgery. CABG x3 as above. OUTPATIENT MEDICATIONS: 1. Metoprolol 25 mg twice a day. 2. Atorvastatin 40 mg a day. 3. Aspirin 325 a day. 4. Tramadol p.r.n. ALLERGIES: NO KNOWN DRUG ALLERGIES. SOCIAL HISTORY: Legally , but has not seen in over 40 years. Smokes 2 cigarettes a day, but before it was about a pack a day. Drinks 2 beers a day, used to be heavy drinker. Denies any use of any drugs. When I asked him, he told me that he might have handled it, touching it, but not using it. I asked him that he needs to kick anyone out of his house, who is using because he should not be around that and he tells me that he cannot kick his mother and his brother out of the house as apparently they are the ones using. REVIEW OF SYSTEMS: A 12-point review of systems was done and was all negative unless stated in the history of present illness. PHYSICAL EXAMINATION: VITAL SIGNS: Temperature 97.6, pulse 85, respiratory rate 18, saturations 96% on room air, and blood pressure 121/71. GENERAL: Awake, alert, and oriented x3, in no distress. HEENT: Normocephalic and atraumatic. LUNGS: Clear to auscultation. CARDIOVASCULAR: S1 and S2. No S3 or S4. No murmurs. ABDOMEN: Soft. Positive bowel sounds. EXTREMITIES: No edema. SKIN: Warm and dry. LABORATORY DATA: Laboratory work was reviewed. CBC was reviewed. ABGs reviewed. Chemistries are reviewed. Troponin is 0.22 and then 4.3. TSH is 1.5. GFR greater than 90. ASSESSMENT AND PLAN: 1. [id number] myocardial infarction. 2. Substance abuse, he denies using. Urine drug screen to be done. 3. Recent coronary artery bypass grafting x3 as above. PLAN: The patient's troponin continues to rise. We will plan on doing a heart catheterization tomorrow morning. We have talked at length about the risks and benefits of the procedure. Risks included, but not limited to stroke, ID, , bleeding, need for blood transfusion, limb loss, organ loss. He verbalized understanding of this. He agrees to proceed. We will plan on doing this tomorrow morning. Thank you for letting us to participate in the care of your patient. We will continue to follow. Job ID: [id number]
[2018-12-29] MEDS: Metoprolol Tartrate 25 MG TAB PO SCH (19:46)
[2018-12-29] MEDS: Famotidine 20 MG TAB PO SCH (19:46)
[2018-12-29] MEDS: Atorvastatin Calcium 40 MG TAB PO SCH (19:46)
[2018-12-29] MEDS: Acetaminophen 325 MG TAB PO PRN (19:46)
[2018-12-30 05:52] LABS: #Basophils 0.1 thou/uL (0.0-0.2); #Eosinphils 0.2 thou/uL (0.0-0.7); #Lymphocytes 2.4 thou/uL (1.20-3.40); #Monocytes 0.9 thou/uL (0.11-0.59); #Neutrophils 3.2 thou/uL (1.40-6.50); %Basophils 1.1 % (0.0-1.0); %Eosinophils 3.4 % (0.0-10.0); %Lymphocytes 35.4 % (21.0-51.0); %Monocytes 12.9 % (0.0-10.0); %Neutrophils 47.3 % (42.0-75.0); Hemoglobin 12.8 g/dL (14.0-18.0); Mean Corpuscular HGB CONC 34.2 g/dL (32.0-36.0); Mean Corpuscular Volume 93.6 fL (78.0-98.0); Mean Platelet Volume 6.6 fL (7.4-10.4); Platelet Count 499 thou/uL (130-400); RBC Distribution Width 11.9 % (11.5-14.5); White Blood Cell (WBC) Count 6.8 thou/uL (4.8-10.8)
[2018-12-30 06:21] LABS: Anion Gap 13 mmol/L (10-20); BUN (Urea Nitrogen) 8 mg/dL (8.4-25.7); Calc. Creatinine Clearance 66 mL/min (70-130); Carbon Dioxide 28 mmol/L (22-29); Cardiac Risk 4.7 (Less than 4.5); Chloride 100 mmol/L (98-107); Cholesterol 141 mg/dl (< 200 Desired); Estimated GFR-MDRD 77; Glucose 109 mg/dL (70-105); HDL Cholesterol 30 mg/dL (>60 Neg Risk); LDL Cholesterol, Calculated 81 mg/dL; Potassium 3.8 mmol/L (3.5-5.1); Sodium 137 mmol/L (136-145); Triglycerides 151 mg/dL (Less than 150)
[2018-12-30 07:00] LABS: Amphetamine Not Detected (NotDetected); Barbiturates Screen Not Detected (NotDetected); Benzodiazepine Screen Not Detected (NotDetected); Cocaine Metabolite Screen Not Detected (NotDetected); Medtox Control Line Valid? VALID (VALID); Medtox Reader # READER 1; Methadone Not Detected (NotDetected); Methamphetamine Not Detected (NotDetected); Opiate Screen Detected (NotDetected); Oxycodone Screen Not Detected (NotDetected); Phencyclidine (PCP) Not Detected (NotDetected); THC/Cannabinoid Screen Detected (NotDetected); Tricyclic Screen Not Detected (NotDetected)
[2018-12-30] MEDS: Metoprolol Tartrate 25 MG TAB PO SCH ×2 (07:19→21:21)
[2018-12-30] MEDS: Famotidine 20 MG TAB PO SCH ×2 (07:19→21:21)
[2018-12-30] MEDS ORDERED: Heparin 10,000 UNITS/1 ML VIAL ONE (07:30)
[2018-12-30] MEDS ORDERED: Nitroglycerin 100MG/250ML BOT 0 ML ONE (07:30)
[2018-12-30] MEDS ORDERED: Lidocaine 1% (PF) 30 ML VIAL ONE (07:30)
[2018-12-30] MEDS: Aspirin 325 mg Enteric Coated Tablet PO SCH ×2 (08:08→10:19)
[2018-12-30] MEDS ORDERED: Midazolam HCl 2 mg/2 ml Vial ONE (08:42)
[2018-12-30] MEDS ORDERED: Fentanyl 100 MCG/2 ML VIAL ONE (08:42)
[2018-12-30] MEDS ORDERED: Iopamidol 370 76% 100 ML VIAL ONE (09:02)
[2018-12-30] MEDS ORDERED: Sodium Chloride 0.9% 200 ML IV PRN (09:07)
[2018-12-30] MEDS ORDERED: Acetaminophen/Codeine 30-300mg Tablet PO PRN (09:07)
[2018-12-30] MEDS ORDERED: Sodium Chloride 0.9% 500 ML IV SCH (09:15)
[2018-12-30] MEDS ORDERED: Enoxaparin Sodium 60 MG/0.6 ML SYRINGE SC SCH (09:30)
[2018-12-30] MEDS: Acetaminophen 325 MG TAB PO PRN (10:31)
[2018-12-30] MEDS ORDERED: Enoxaparin Sodium 40 MG/0.4 ML SYRINGE SC SCH (11:15)
--- NOTE | 2018-12-30 12:50 | PDOC.HOSPP ---
- Subjective Encounter Date: 12/30/18 Encounter Time: 12:48 Subjective: Mr. Nunes was seen today in follow-up of NSTEMI. He says his arms are feeling better. He denies any pain today. - Objective Vital Signs & Weight: Vital Signs (12 hours) Temp Pulse Resp BP BP Pulse Ox 12/30/18 09:30 98.1 F 67 17 147/73 H 98 12/30/18 07:55 98.6 F 70 17 123/71 98 12/30/18 04:00 99.3 F 69 14 112/54 L 122/85 99 12/30/18 03:55 99.3 F 69 14 112/54 L 99 Weight Weight 146 lb 15.36 oz I&O: 12/29/18 12/30/18 12/31/18 06:59 06:59 06:59 Intake Total 880 Output Total 1400 Balance -520 Result Diagrams: 12/30/18 05:25 12/30/18 05:25 Hospitalist ROS - Medication Medications: Active Medications Generic Name Dose Route Start Last Admin Trade Name Freq PRN Reason Stop Dose Admin Acetaminophen 650 mg 12/29/18 12:50 12/30/18 10:31 Tylenol PO 650 mg Q4H PRN Administration Headache/Fever/Mild Pain (1-3) Aspirin 325 mg 12/30/18 09:00 12/30/18 10:19 Ecotrin PO 325 mg DAILY [facility]CK Administration Atorvastatin Calcium 40 mg 12/29/18 21:00 12/29/18 19:46 Lipitor PO 40 mg HS MARCK Administration Famotidine 20 mg 12/29/18 21:00 12/30/18 07:19 Pepcid PO 20 mg BID MARCK Administration Sodium Chloride 500 mls @ 100 mls/hr 12/30/18 09:15 12/30/18 10:23 Normal Saline 0.9% IV 12/30/18 14:14 500 mls .Q5H MARCK Administration Metoprolol Tartrate 25 mg 12/29/18 21:00 12/30/18 07:19 Lopressor PO 25 mg BID MARCK Administration - Exam Eye: PERRL, anicteric sclera Neck: supple, symmetric, no JVD Heart: RRR, no murmur, no gallops, no rubs, normal peripheral pulses Respiratory: CTAB, no wheezes, no rales, no ronchi, normal chest expansion, no tachypnea, normal percussion Gastrointestinal: soft, non-tender, non-distended, normal bowel sounds, no palpable masses, no hepatomegaly, no splenomegaly, no bruit Extremities: no cyanosis, no clubbing, no edema Hosp A/P (1) NSTEMI (non-ST elevated myocardial infarction) Code(s): I21.4 - NON-ST ELEVATION (NSTEMI) MYOCARDIAL INFARCTION Status: Acute (2) Dyslipidemia Code(s): E78.5 - HYPERLIPIDEMIA, UNSPECIFIED Status: Acute - Plan * NSTEMI type 1- cardiac cath results noted. He had a thrombus in one of his SVG * He admits to me there were a few days he did not take aspirin * Medication compliance as well smoking cessation and abstaining from elicit drugs was discussed * Continue medical therapy * Disposition as per Cardiology
[2018-12-30] MEDS: traMADol HCl 50 MG TAB PO PRN (21:19)
[2018-12-30] MEDS: Atorvastatin Calcium 40 MG TAB PO SCH (21:21)
[2018-12-30] MEDS: Nicotine 14 MG PATCH TD SCH (21:21)
[2018-12-30] MEDS: Enoxaparin Sodium 60 MG/0.6 ML SYRINGE SC SCH (21:22)
[2018-12-30] MEDS ORDERED: Clopidogrel Bisulfate 300 MG TAB PO SCH (21:30)
[2018-12-31] MEDS: Metoprolol Tartrate 25 MG TAB PO SCH ×2 (09:12→21:11)
[2018-12-31] MEDS: Aspirin 325 mg Enteric Coated Tablet PO SCH (09:12)
[2018-12-31] MEDS: Enoxaparin Sodium 60 MG/0.6 ML SYRINGE SC SCH ×2 (09:12→21:12)
[2018-12-31] MEDS: Clopidogrel Bisulfate 75 MG TAB PO SCH (09:12)
[2018-12-31] MEDS: Famotidine 20 MG TAB PO SCH ×2 (09:12→21:11)
--- NOTE | 2018-12-31 15:57 | PDOC.HOSPP ---
- Subjective Subjective: Feels fine. Denies any chest pain. - Objective Vital Signs & Weight: Vital Signs (12 hours) Temp Pulse Pulse Pulse Resp BP BP 12/31/18 15:25 98.5 F 82 16 12/31/18 12:00 98.2 F 80 14 12/31/18 10:29 72 75 112/65 116/69 12/31/18 08:00 12/31/18 07:36 97.9 F 78 17 BP Pulse Ox Pulse Ox Pulse Ox 12/31/18 15:25 104/64 98 12/31/18 12:00 102/68 98 12/31/18 10:29 100 98 12/31/18 08:00 99 12/31/18 07:36 117/70 99 Weight Weight 145 lb 6.4 oz I&O: 12/30/18 12/31/18 01/01/19 06:59 06:59 06:59 Intake Total 880 1340 Output Total 1400 1650 Balance -520 -310 Result Diagrams: 12/30/18 05:25 12/30/18 05:25 Hospitalist ROS - Medication Medications: Active Medications Generic Name Dose Route Start Last Admin Trade Name Freq PRN Reason Stop Dose Admin Acetaminophen 650 mg 12/29/18 12:50 12/30/18 10:31 Tylenol PO 650 mg Q4H PRN Administration Headache/Fever/Mild Pain (1-3) Acetaminophen/Codeine Phosphate 1 tab 12/30/18 09:07 12/30/18 18:52 Tylenol #3 PO 1 tab Q4H PRN Administration Mild Pain (1-3) Aspirin 325 mg 12/30/18 09:00 12/31/18 09:12 Ecotrin PO 325 mg DAILY [facility]CK Administration Atorvastatin Calcium 40 mg 12/29/18 21:00 12/30/18 21:21 Lipitor PO 40 mg HS MARCK Administration Clopidogrel Bisulfate 75 mg 12/31/18 09:00 12/31/18 09:12 Plavix PO 75 mg DAILY [facility] Administration Enoxaparin Sodium 60 mg 12/30/18 21:00 12/31/18 09:12 Lovenox SC 60 mg 0900,2100 [facility] Administration Famotidine 20 mg 12/29/18 21:00 12/31/18 09:12 Pepcid PO 20 mg BID MARCK Administration Metoprolol Tartrate 25 mg 12/29/18 21:00 12/31/18 09:12 Lopressor PO 25 mg BID MARCK Administration Nicotine 14 mg 12/30/18 20:30 12/30/18 21:21 Nicoderm Patch TD 14 mg Q24HR MARCK Administration Sodium Chloride 10 ml 12/30/18 21:00 12/31/18 09:13 Flush - Normal Saline IVF 10 ml Q12HR MARCK Administration Tramadol HCl 50 mg 12/29/18 12:50 12/30/18 21:19 Ultram PO 50 mg Q6H PRN Administration Pain - Exam General Appearance: NAD, awake alert Neck: supple, symmetric, no JVD, no thyromegaly, no lymphadenopathy, no carotid bruit Heart: RRR, no murmur, no gallops, no rubs, normal peripheral pulses Heart - other findings: Sternal incision looks good. Respiratory: CTAB, no wheezes, no rales, no ronchi, normal chest expansion, no tachypnea, normal percussion Gastrointestinal: soft, non-tender, non-distended, normal bowel sounds, no palpable masses, no hepatomegaly, no splenomegaly, no bruit Skin: normal turgor Musculoskeletal: normal tone Psychiatric: normal affect, normal behavior, A&O x 3 Hosp A/P (1) Dyslipidemia Code(s): E78.5 - HYPERLIPIDEMIA, UNSPECIFIED Status: Acute (2) NSTEMI (non-ST elevated myocardial infarction) Code(s): I21.4 - NON-ST ELEVATION (NSTEMI) MYOCARDIAL INFARCTION Status: Acute (3) CAD (coronary artery disease) Code(s): I25.10 - ATHSCL HEART DISEASE OF [place] CORONARY ARTERY W/O ANG PCTRS Status: Chronic (4) Cocaine abuse Code(s): F14.10 - COCAINE ABUSE, UNCOMPLICATED Status: Chronic (5) S/P CABG (coronary artery bypass graft) Code(s): Z95.1 - PRESENCE OF AORTOCORONARY BYPASS GRAFT Status: Chronic - Plan Doing well overall. D/W Dr. Rocha. Will continue with the anticoagulation today given the degree of thrombus present. Remain on tele.
[2018-12-31] MEDS: traMADol HCl 50 MG TAB PO PRN (19:21)
--- NOTE | 2018-12-31 19:45 | PDOC.CPN ---
- Subjective Date: 12/31/18 Time: 19:44 Interval history: He is doing well. No chest pain. Walking around without issues. - Review of Systems General: denies: fever/chills, weight/appetite/sleep changes, night sweats, fatigue Respiratory: denies: cough, congestion, shortness of breath, exercise intolerance Cardiovascular: denies: chest pain, palpitation, edema, paroxysmal nocturnal dyspnea, orthopnea Gastrointestinal: denies: nausea, vomiting, diarrhea, constipation, abd pain, GI bleeding Musculoskeletal: denies: pain, tenderness, stiffness, swelling, arthritis/ arthralgias Neurological: denies: numbness, syncope, seizure, weakness - Objective Allergies/Adverse Reactions: Allergies Allergy/AdvReac Type Severity Reaction Status Date / Time No Known Allergies Allergy Verified 12/18/18 20:26 Visit Medications: Current Medications Acetaminophen (Tylenol) 650 mg PO Q4H PRN PRN Reason: Headache/Fever/Mild Pain (1-3) Last Admin: 12/30/18 10:31 Dose: 650 mg Acetaminophen/Codeine Phosphate (Tylenol #3) 1 tab PO Q4H PRN PRN Reason: Mild Pain (1-3) Last Admin: 12/30/18 18:52 Dose: 1 tab Aspirin (Ecotrin) 325 mg PO DAILY [facility] Last Admin: 12/31/18 09:12 Dose: 325 mg Atorvastatin Calcium (Lipitor) 40 mg PO HS [facility] Last Admin: 12/30/18 21:21 Dose: 40 mg Clopidogrel Bisulfate (Plavix) 75 mg PO DAILY [facility] Last Admin: 12/31/18 09:12 Dose: 75 mg Enoxaparin Sodium (Lovenox) 60 mg SC 0900,2100 [facility] Last Admin: 12/31/18 09:12 Dose: 60 mg Famotidine (Pepcid) 20 mg PO BID [facility] Last Admin: 12/31/18 09:12 Dose: 20 mg Metoprolol Tartrate (Lopressor) 25 mg PO BID [facility] Last Admin: 12/31/18 09:12 Dose: 25 mg Nicotine (Nicoderm Patch) 14 mg TD Q24HR [facility] Last Admin: 12/30/18 21:21 Dose: 14 mg Nitroglycerin (Nitrostat) 0.4 mg PO Q5MIN PRN PRN Reason: Chest Pain Ondansetron HCl (Zofran Odt) 4 mg PO Q6H PRN PRN Reason: Nausea/Vomiting Ondansetron HCl (Zofran) 4 mg IVP Q6H PRN PRN Reason: Nausea/Vomiting Sodium Chloride (Flush - Normal Saline) 10 ml IVF Q12HR [facility] Last Admin: 12/31/18 09:13 Dose: 10 ml Sodium Chloride (Flush - Normal Saline) 10 ml IVF PRN PRN PRN Reason: Saline Flush Tramadol HCl (Ultram) 50 mg PO Q6H PRN PRN Reason: Pain Last Admin: 12/31/18 19:21 Dose: 50 mg Vital Signs & Weight: Vital Signs Temp Pulse Pulse Pulse Resp BP BP 12/31/18 15:25 98.5 F 82 16 12/31/18 12:00 98.2 F 80 14 12/31/18 10:29 72 75 112/65 116/69 12/31/18 08:00 BP Pulse Ox Pulse Ox Pulse Ox 12/31/18 15:25 104/64 98 12/31/18 12:00 102/68 98 12/31/18 10:29 100 98 12/31/18 08:00 99 Weight 145 lb 6.4 oz - Physical Exam General: alert & oriented x3 HEENT: mucus membranes moist Neck: supple neck Cardiac: regular rate and rhythm Lungs: clear to auscultation Neuro: grossly intact Abdomen: active bowel sounds Skin: clear Musculoskeletal: normal range of motion - Labs Result Diagrams: 12/30/18 05:25 12/30/18 05:25 Troponin/CKMB CK-MB (CK-2) 4.2 ng/mL (0-6.6) 12/29/18 09:26 Troponin I 8.708 ng/mL (< 0.028) H* 12/29/18 15:30 - Telemetry Sinus rhythms and dysrhythmias: sinus rhythm - Assessment/Plan Assessment/Plan: 1. NSTEMI 2. Failed SVG to OM 3. Substance abuse. PLAN: - Had [employer] in system which he denies but states he has been around [employer] smokers. - Continue all meds, plavix. - No ACEI due to borderline low BP. - Home tomorrow if he remains stable.
[2018-12-31] MEDS: Atorvastatin Calcium 40 MG TAB PO SCH (21:10)
[2018-12-31] MEDS: Nicotine 14 MG PATCH TD SCH (21:11)
--- NOTE | 2019-01-01 06:46 | PDOC.CPN ---
- Objective Allergies/Adverse Reactions: Allergies Allergy/AdvReac Type Severity Reaction Status Date / Time No Known Allergies Allergy Verified 12/18/18 20:26 Visit Medications: Current Medications Acetaminophen (Tylenol) 650 mg PO Q4H PRN PRN Reason: Headache/Fever/Mild Pain (1-3) Last Admin: 12/30/18 10:31 Dose: 650 mg Acetaminophen/Codeine Phosphate (Tylenol #3) 1 tab PO Q4H PRN PRN Reason: Mild Pain (1-3) Last Admin: 12/30/18 18:52 Dose: 1 tab Aspirin (Ecotrin) 325 mg PO DAILY [facility] Last Admin: 12/31/18 09:12 Dose: 325 mg Atorvastatin Calcium (Lipitor) 40 mg PO HS [facility] Last Admin: 12/31/18 21:10 Dose: 40 mg Clopidogrel Bisulfate (Plavix) 75 mg PO DAILY [facility] Last Admin: 12/31/18 09:12 Dose: 75 mg Enoxaparin Sodium (Lovenox) 60 mg SC 0900,2100 [facility] Last Admin: 12/31/18 21:12 Dose: 60 mg Famotidine (Pepcid) 20 mg PO BID [facility] Last Admin: 12/31/18 21:11 Dose: 20 mg Metoprolol Tartrate (Lopressor) 25 mg PO BID [facility] Last Admin: 12/31/18 21:11 Dose: 25 mg Nicotine (Nicoderm Patch) 14 mg TD Q24HR [facility] Last Admin: 12/31/18 21:11 Dose: 14 mg Nitroglycerin (Nitrostat) 0.4 mg PO Q5MIN PRN PRN Reason: Chest Pain Ondansetron HCl (Zofran Odt) 4 mg PO Q6H PRN PRN Reason: Nausea/Vomiting Ondansetron HCl (Zofran) 4 mg IVP Q6H PRN PRN Reason: Nausea/Vomiting Sodium Chloride (Flush - Normal Saline) 10 ml IVF Q12HR [facility] Last Admin: 12/31/18 21:11 Dose: 10 ml Sodium Chloride (Flush - Normal Saline) 10 ml IVF PRN PRN PRN Reason: Saline Flush Tramadol HCl (Ultram) 50 mg PO Q6H PRN PRN Reason: Pain Last Admin: 12/31/18 19:21 Dose: 50 mg Vital Signs & Weight: Vital Signs Temp Pulse Resp BP Pulse Ox 01/01/19 03:23 98.7 F 86 16 128/74 100 12/31/18 21:05 98.9 F 85 16 109/57 L 97 Weight 151 lb - Physical Exam General: alert & oriented x3 Neck: supple neck Cardiac: regular rate and rhythm, regular rate, regular rhythm Lungs: normal exam Abdomen: non-tender Skin: rash Musculoskeletal: no pain - Labs Result Diagrams: 12/30/18 05:25 12/30/18 05:25 Troponin/CKMB CK-MB (CK-2) 4.2 ng/mL (0-6.6) 12/29/18 09:26 Troponin I 8.708 ng/mL (< 0.028) H* 12/29/18 15:30 - Assessment/Plan Assessment/Plan: Severe CAD Occluded SVG to OMB Substance abuse On ASA, plavix, BB and statin D/C loveonx No further reocmmendations Ok to DC from CV standpoint
[2019-01-01] MEDS: Famotidine 20 MG TAB PO SCH (08:40)
[2019-01-01] MEDS: Clopidogrel Bisulfate 75 MG TAB PO SCH (08:43)
[2019-01-01] MEDS: Aspirin 325 mg Enteric Coated Tablet PO SCH (08:43)
[2019-01-01] MEDS: Metoprolol Tartrate 25 MG TAB PO SCH (08:44)
[2019-01-01 17:04] VITALS: BP 127/76; TEMP 98.6
--- NOTE | 2019-01-02 07:31 | DIS ---
DATE OF ADMISSION: 12/29/2018 DATE OF DISCHARGE: 01/01/2019 DISCHARGE DISPOSITION: Home. PRIMARY DISCHARGE DIAGNOSES: Severe coronary artery disease with occluded saphenous vein graft to obtuse marginal, substance abuse, coronary artery disease, non-ST elevation myocardial infarction on arrival, history of coronary artery bypass graft. PROCEDURES DONE DURING HOSPITALIZATION: Coronary angiogram done by Dr. Rocha, 12/30/2018, showed severe proximal LAD disease, moderate RCA disease. Saphenous vein graft to diagonal was patent MCINTYRE to LAD, patent saphenous vein graft to obtuse marginal 1 was full of thrombus and was not amenable to stenting due to small size. Echo with 2D Doppler showed an EF of 50% to 55%. There was diastolic dysfunction. H and H 12 and 37, platelet count 499. White count of 6.8. Discharge BUN and creatinine are 8 and 1.1. Total cholesterol 141, triglycerides 151, LDL 81, HDL 30. Troponin I peaked at 8.70, CK-MB 4.2, TSH 1.59. Urine drug screen was positive for cannabinoids and opiates. It was positive for cocaine as well in addition to the other two on the November 30. DISCHARGE MEDICATIONS: 1. Aspirin 325 mg p.o. daily. 2. Lipitor 40 mg p.o. at bedtime. 3. Plavix 75 mg p.o. daily. 4. Lopressor 25 mg p.o. twice daily. 5. Ultram p.r.n. for pain. ALLERGIES: NO KNOWN DRUG ALLERGIES. INPATIENT CONSULT: Dr. Rocha/Dr. Evans for Cardiology. DISCHARGE PLAN: The patient to follow up with Dr. Hearn as advised, post CABG on 12/18/2018 for 3-vessel disease. He needs to follow up with Dr. Evans as advised and primary care physician in 1 week BRIEF COURSE DURING HOSPITALIZATION: The patient initially came in with complaints of pain in both arms with associated nausea and diaphoresis. He initially went to [facility] from where he was transferred here. He was initially admitted to telemetry. He has had consultation with Dr. Rocha. The patient's troponin trended up to 8.7, and he has had coronary angiogram done. He was found to have had a thrombus in obtuse marginal one, which was not amenable for stenting or angioplasty. He had patent MCINTYRE to LAD and saphenous vein graft to diagonal. The patient was placed on full-dose anticoagulation during his stay here. He has remained chest pain free and is ambulating and eating well. He has remained hemodynamically stable and has been cleared by Cardiology for discharge today. He was counseled with regard to medication compliance and dietary compliance. He is also counseled with regard to follow up appointments that he needs to keep up. Please note, I have seen and examined the patient on the day of discharge. Job ID: [id number]
== END 2019-01-01 17:24 | disposition home or self-care (01) | DRG 282 ==
LOC: ERS 09:13 → OBSVTOIN 12:48 → 2NO 12:48
PROVIDERS: ADMIT Internal Medicine; ATTEND Internal Medicine
PROC: 4A023N7 Measurement of Cardiac Sampling and Pressure, Left Heart, Percutaneous Approach (ICD-10-PCS; principal; 2018-12-30)
PROC: B2111ZZ Fluoroscopy of Multiple Coronary Arteries using Low Osmolar Contrast (ICD-10-PCS; 2018-12-30)
PROC: B2151ZZ Fluoroscopy of Left Heart using Low Osmolar Contrast (ICD-10-PCS; 2018-12-30)
PROC: B2131ZZ Fluoroscopy of Multiple Coronary Artery Bypass Grafts using Low Osmolar Contrast (ICD-10-PCS; 2018-12-30)
DX: T82.867A Thrombosis due to cardiac prosthetic devices, implants and grafts, initial encounter (principal); I22.9 Subsequent ST elevation (STEMI) myocardial infarction of unspecified site; I21.4 Non-ST elevation (NSTEMI) myocardial infarction; I25.10 Atherosclerotic heart disease of native coronary artery without angina pectoris; F17.210 Nicotine dependence, cigarettes, uncomplicated; F19.10 Other psychoactive substance abuse, uncomplicated; E78.5 Hyperlipidemia, unspecified; Y83.2 Surgical operation with anastomosis, bypass or graft as the cause of abnormal reaction of the patient, or of later complication, without mention of misadventure at the time of the procedure; F14.10 Cocaine abuse, uncomplicated; Z95.1 Presence of aortocoronary bypass graft; Z95.5 Presence of coronary angioplasty implant and graft
CPT/HCPCS: 36415; 80048; 80061; 80306; 82553; 84484; 85025; 93005; 93306; 93459; 93798; 94760; 96372; 96374; 99152; 99153; C1769; J1644; J1650; J2001; J2250; J3010; Q9967

== ENCOUNTER 2020-01-01 13:49 | Outpatient (CLI) | payer OTHER | END 2020-01-01 13:50 | disposition home or self-care (01) | LOC: ULT 13:49 | PROVIDERS: ATTEND Psychiatry & Neurology Neurology | DX: Z02.71 Encounter for disability determination (principal); I73.9 Peripheral vascular disease, unspecified | CPT/HCPCS: 93922 ==

== ENCOUNTER 2022-11-11 12:43 | Outpatient (CLI) | payer OTHER ==
[2022-11-11] MEDS ORDERED: Iopamidol 370 76% 100 ML VIAL ONE (12:50)
== END 2022-11-11 12:44 | disposition home or self-care (01) ==
LOC: CT 12:43
PROVIDERS: ATTEND Thoracic Surgery (Cardiothoracic Vascular Surgery)
DX: I70.213 Atherosclerosis of native arteries of extremities with intermittent claudication, bilateral legs (principal); I77.89 Other specified disorders of arteries and arterioles
CPT/HCPCS: 75635; 82565